=== PATIENT | male | born 1990 | race Caucasian/White ===

== ENCOUNTER 2018-05-21 10:06 | Emergency (ER) | payer MEDICAID, OTHER ==
[~2018-05-21] VITALS: Ht 172.7 cm; Wt 84.5 kg
[~2018-05-21 10:06] MED LIST: CITA-106 PO; DIVA500T35 PO; HALOD100I IM; TRAZ-147 PO
[2018-05-21 10:51] LABS: BASOPHILS % (AUTO) 0.4 % (0.0-2.0); EOSINOPHILS % (AUTO) 0.2 % (1.0-6.0); HEMATOCRIT 42.4 % (41-53); HEMOGLOBIN 14.9 g/dL (13.5-17.5); LYMPHOCYTES # (AUTO) 2.7 K/uL (1.0-4.8); LYMPHOCYTES % (AUTO) 19.6 % (22.0-44.0); MEAN CORPUSCULAR HEMOGLOBIN 30.1 pg (26.0-34.0); MEAN CORPUSCULAR VOLUME 86 fL (80-100); MONOCYTES # (AUTO) 0.8 K/uL (0.1-1.0); MONOCYTES % (AUTO) 5.8 % (2.0-9.0); NEUTROPHILS # (AUTO) 10.3 K/uL (1.8-7.7); PLATELET COUNT (AUTO) 346 K/uL (150-450); RED BLOOD CELL COUNT(AUTO) 4.93 MIL/uL (4.50-5.90); RED CELL DISTRIBUTION WIDTH 12.8 % (11.5-14.5)
[2018-05-21 11:03] LABS: AMPHET/METH SCREEN,URINE NEGATIVE (NEGATIVE); BARBITURATE SCREEN, URINE NEGATIVE (NEGATIVE); BENZODIAZEPINES SCREEN,URINE NEGATIVE (NEGATIVE); CANNABINOID SCREEN,URINE NEGATIVE (NEGATIVE); COCAINE SCREEN,URINE NEGATIVE (NEGATIVE); METHADONE SCREEN, URINE NEGATIVE (NEGATIVE); OPIATE SCREEN,URINE NEGATIVE (NEGATIVE)
[2018-05-21 11:04] LABS: PHENCYCLIDINE SCREEN,URINE NEGATIVE (NEGATIVE)
[2018-05-21 11:05] LABS: ANION GAP 8 mmol/L (8-16); CARBON DIOXIDE 28 mmol/L (22-29); CHLORIDE 101 mmol/L (98-107); CREATININE 1.02 mg/dL (0.60-1.30); GLOMERULAR FILTR. RATE CALC > 60 mL/min (>60); GLUCOSE,RANDOM 83 mg/dL (70-110); POTASSIUM 4.3 mmol/L (3.5-5.1); SODIUM SERUM 137 mmol/L (136-145); UREA NITROGEN, BLOOD 12 mg/dL (7-18)
[2018-05-21 11:09] LABS: ALANINE AMINOTRANSFERASE 27 U/L (12-78); ALBUMIN 4.4 g/dL (3.4-5.0); ALKALINE PHOSPHATASE 77 U/L (46-116); ASPARTATE AMINOTRANSFERASE 19 U/L (15-37); BILIRUBIN,TOTAL 0.7 mg/dL (0.1-1.0); TOTAL PROTEIN, SERUM 7.8 g/dL (6.4-8.2)
[2018-05-21 15:53] VITALS: BP 127/72
== END 2018-05-21 16:32 | disposition home or self-care (01) ==
LOC: EDUNIT# 10:06 → EMS 10:08
DX: F31.9 Bipolar disorder, unspecified (principal); F20.9 Schizophrenia, unspecified; F17.210 Nicotine dependence, cigarettes, uncomplicated; F19.90 Other psychoactive substance use, unspecified, uncomplicated; Z59.0 Homelessness; Z91.010 Allergy to peanuts; Z91.013 Allergy to seafood
CPT/HCPCS: 36415; 80053; 80307; 85025; 93005; 99285; G0480

== ENCOUNTER 2019-03-23 20:21 | Emergency (ER) | payer SELFPAY ==
[~2019-03-23] VITALS: Ht 170.2 cm; Wt 85.5 kg
[2019-03-23] MEDS ORDERED: HALO100V4 IM (20:45)
[2019-03-23] MEDS ORDERED: ACETAMINOPHEN 500 MG TABLET PO ONE (21:45)
[2019-03-23 22:39] VITALS: BP 131/86
== END 2019-03-23 23:44 | disposition home or self-care (01) ==
LOC: EMS 20:23
DX: S00.83XA Contusion of other part of head, initial encounter (principal); F20.9 Schizophrenia, unspecified; F31.9 Bipolar disorder, unspecified; F17.210 Nicotine dependence, cigarettes, uncomplicated; F12.90 Cannabis use, unspecified, uncomplicated; F15.90 Other stimulant use, unspecified, uncomplicated; Z59.0 Homelessness; Z91.010 Allergy to peanuts; Z91.013 Allergy to seafood; Y04.0XXA Assault by unarmed brawl or fight, initial encounter; Y93.89 Activity, other specified; Y92.89 Other specified places as the place of occurrence of the external cause; Y99.8 Other external cause status

== ENCOUNTER 2019-11-04 12:40 | Emergency (ER) | payer OTHER ==
[~2019-11-04] VITALS: Ht 170.2 cm; Wt 85.0 kg
[~2019-11-04 12:40] MED LIST changes: -CITA-106 PO; -DIVA500T35 PO; +HALO100V4 IM; -HALOD100I IM; -TRAZ-147 PO
[2019-11-04 13:15] VITALS: BP 144/88
== END 2019-11-04 13:30 | disposition home or self-care (01) ==
LOC: EMS 12:41
DX: F41.9 Anxiety disorder, unspecified (principal); F31.9 Bipolar disorder, unspecified; F20.9 Schizophrenia, unspecified; F17.210 Nicotine dependence, cigarettes, uncomplicated; F12.90 Cannabis use, unspecified, uncomplicated; F19.90 Other psychoactive substance use, unspecified, uncomplicated; Z59.0 Homelessness
CPT/HCPCS: 99406

== ENCOUNTER 2020-02-27 12:07 | Inpatient (IN) | payer MEDICAID, OTHER ==
[~2020-02-27] VITALS: Ht 170.2 cm; Wt 77.6 kg
[2020-02-27] MEDS ORDERED: TRAZ-252 PO (12:22)
[2020-02-27 12:59] LABS: AMPHET/METH SCREEN,URINE NEGATIVE (NEGATIVE); BARBITURATE SCREEN, URINE NEGATIVE (NEGATIVE); BENZODIAZEPINES SCREEN,URINE NEGATIVE (NEGATIVE); CANNABINOID SCREEN,URINE NEGATIVE (NEGATIVE); COCAINE SCREEN,URINE NEGATIVE (NEGATIVE); METHADONE SCREEN, URINE NEGATIVE (NEGATIVE); OPIATE SCREEN,URINE NEGATIVE (NEGATIVE)
[2020-02-27 13:01] LABS: PHENCYCLIDINE SCREEN,URINE NEGATIVE (NEGATIVE)
[2020-02-27 13:04] LABS: BASOPHILS % (AUTO) 0.5 % (0.0-2.0); EOSINOPHILS % (AUTO) 0.4 % (1.0-6.0); HEMATOCRIT 47.8 % (41-53); HEMOGLOBIN 16.3 g/dL (13.5-17.5); LYMPHOCYTES # (AUTO) 1.6 K/uL (1.0-4.8); LYMPHOCYTES % (AUTO) 14.8 % (22.0-44.0); MEAN CORPUSCULAR VOLUME 88 fL (80-100); MONOCYTES # (AUTO) 0.5 K/uL (0.1-1.0); MONOCYTES % (AUTO) 4.7 % (2.0-9.0); NEUTROPHILS # (AUTO) 8.7 K/uL (1.8-7.7); NEUTROPHILS % (AUTO) 79.6 % (40.0-70.0); PLATELET COUNT (AUTO) 309 K/uL (150-450); RED BLOOD CELL COUNT(AUTO) 5.43 MIL/uL (4.50-5.90); RED CELL DISTRIBUTION WIDTH 12.6 % (11.5-14.5)
[2020-02-27 13:16] LABS: ANION GAP 7 mmol/L (8-16); CALCIUM, TOTAL 9.8 mg/dL (8.8-10.5); CARBON DIOXIDE 31 mmol/L (22-29); CHLORIDE 102 mmol/L (98-107); CREATININE 0.96 mg/dL (0.60-1.30); GLOMERULAR FILTR. RATE CALC > 60 mL/min (>60); GLUCOSE,RANDOM 93 mg/dL (70-110); POTASSIUM 4.8 mmol/L (3.5-5.1); SODIUM SERUM 140 mmol/L (136-145); UREA NITROGEN, BLOOD 7 mg/dL (7-18)
[2020-02-27 13:22] LABS: ALANINE AMINOTRANSFERASE 33 U/L (12-78); ALBUMIN 4.3 g/dL (3.4-5.0); ALKALINE PHOSPHATASE 97 U/L (46-116); ASPARTATE AMINOTRANSFERASE 20 U/L (15-37); BILIRUBIN,TOTAL 0.2 mg/dL (0.1-1.0); TOTAL PROTEIN, SERUM 7.5 g/dL (6.4-8.2)
[2020-02-27] MEDS: HALOPERIDOL 5 MG TABLET PO SCH (17:14)
[2020-02-27] MEDS ORDERED: PNEUMOCOCCAL VACCINE POLYVALENT 0.5 ML VIAL [PPSV23] IM ONE (20:15)
[2020-02-28 05:00] VITALS: BP 106/62
[2020-02-28 08:10] VITALS: BP 104/64
[2020-02-28] MEDS: HALOPERIDOL 5 MG TABLET PO SCH ×2 (08:48→16:41)
[2020-02-28] MEDS: NICOTINE 14 MG/24 HOUR PATCH TD SCH (08:49)
[2020-02-28] MEDS ORDERED: ACETAMINOPHEN 325 MG TABLET PO PRN (14:30)
[2020-02-28] MEDS ORDERED: ALBUTEROL SULFATE HFA 90 MCG/PUFF 8 GM INHALER IH PRN (14:30)
[2020-02-28] MEDS ORDERED: DOCUSATE SODIUM 100 MG CAPSULE PO PRN (14:30)
[2020-02-28] MEDS ORDERED: MAG HYDROX/AL HYDROX/SIMETH ES 30 ML SUSPENSION UDCUP PO PRN (14:30)
[2020-02-28] MEDS ORDERED: NICOTINE 14 MG/24 HOUR PATCH TD PRN (14:30)
[2020-02-28] MEDS ORDERED: PETROLATUM,WHITE 28 GM JELLY TP PRN (14:30)
[2020-02-28] MEDS ORDERED: LOPERAMIDE HCL 2 MG CAPSULE PO PRN (14:30)
[2020-02-28] MEDS ORDERED: GuaiFENesin/D-METHORPHAN [SUGAR-FREE] 200-20MG/10 ML SYRUP UDCUP PO PRN (14:30)
[2020-02-28] MEDS ORDERED: IBUPROFEN 400 MG TABLET PO PRN (14:30)
[2020-02-28] MEDS ORDERED: CloNIDine HCL 0.1 MG TABLET PO PRN (14:30)
[2020-02-28] MEDS ORDERED: MAGNESIUM HYDROXIDE SUSPENSION 30 ML UDCUP PO PRN (14:30)
[2020-02-28] MEDS ORDERED: ONDANSETRON HCL 4 MG TABLET PO PRN (14:30)
[2020-02-28 16:17] VITALS: BP 111/70
[2020-02-28] MEDS: RisperiDONE 2 MG TABLET PO SCH (20:21)
[2020-02-29 05:37] VITALS: BP 117/75
[2020-02-29 08:07] LABS: CHOL/HDL RATIO 5.2 (4.2-7.3); FREE T4 (FREE THYROXINE) 1.27 ng/dL (0.76-1.46); THYROID STIMULATING HORMONE 1.86 uIU/mL (0.36-3.74)
[2020-02-29] MEDS: NICOTINE 14 MG/24 HOUR PATCH TD SCH (08:59)
[2020-02-29] MEDS: HALOPERIDOL 5 MG TABLET PO SCH ×2 (08:59→17:03)
[2020-02-29 09:04] VITALS: BP 115/70
[2020-02-29] MEDS: HALOPERIDOL 5 MG TABLET PO PRN (12:18)
[2020-02-29 16:41] VITALS: BP 102/60
[2020-02-29] MEDS: RisperiDONE 2 MG TABLET PO SCH (20:52)
[2020-02-29] MEDS: ZOLPIDEM TARTRATE 10 MG TABLET PO PRN (20:52)
[2020-03-01 05:39] VITALS: BP 128/86
[2020-03-01] MEDS: HALOPERIDOL 5 MG TABLET PO SCH ×2 (08:51→16:35)
[2020-03-01] MEDS: NICOTINE 14 MG/24 HOUR PATCH TD SCH (08:52)
[2020-03-01] MEDS: LORazepam 2 MG TABLET PO PRN ×2 (09:56→15:45)
[2020-03-01 10:12] VITALS: BP 129/65
[2020-03-01 16:38] VITALS: BP 115/84
[2020-03-01] MEDS: RisperiDONE 2 MG TABLET PO SCH (20:29)
[2020-03-02 02:26] VITALS: BP 118/83
[2020-03-02] MEDS: HALOPERIDOL 5 MG TABLET PO SCH ×2 (08:49→16:27)
[2020-03-02] MEDS: NICOTINE 14 MG/24 HOUR PATCH TD SCH (08:56)
[2020-03-02 09:48] VITALS: BP 122/78
[2020-03-02] MEDS: LORazepam 2 MG TABLET PO PRN ×2 (12:34→17:03)
[2020-03-02 16:32] VITALS: BP 126/71
[2020-03-02] MEDS: HALOPERIDOL 5 MG TABLET PO PRN (18:29)
[2020-03-02] MEDS: RisperiDONE 2 MG TABLET PO SCH (20:26)
[2020-03-03 01:31] VITALS: BP 131/75
[2020-03-03 08:06] VITALS: BP 112/76
[2020-03-03] MEDS: OMEGA-3/DHA/EPA/FISH OIL 1,000 MG CAPSULE PO SCH (08:36)
[2020-03-03] MEDS: HALOPERIDOL 5 MG TABLET PO SCH ×2 (08:36→15:51)
[2020-03-03] MEDS: NICOTINE 14 MG/24 HOUR PATCH TD SCH (08:43)
[2020-03-03] MEDS: LORazepam 2 MG TABLET PO PRN (15:51)
[2020-03-03 16:21] VITALS: BP 132/82
[2020-03-03] MEDS: RisperiDONE 2 MG TABLET PO SCH (20:23)
[2020-03-04 01:02] VITALS: BP 125/79
[2020-03-04] MEDS: HALOPERIDOL 5 MG TABLET PO SCH ×2 (08:07→16:05)
[2020-03-04] MEDS: OMEGA-3/DHA/EPA/FISH OIL 1,000 MG CAPSULE PO SCH (08:07)
[2020-03-04] MEDS: NICOTINE 14 MG/24 HOUR PATCH TD SCH (08:09)
[2020-03-04 08:59] VITALS: BP 126/75
[2020-03-04] MEDS: LORazepam 2 MG TABLET PO PRN ×2 (09:01→14:00)
[2020-03-04 16:39] VITALS: BP 139/66
[2020-03-04] MEDS: RisperiDONE 2 MG TABLET PO SCH (20:13)
[2020-03-04] MEDS: ZOLPIDEM TARTRATE 10 MG TABLET PO PRN (21:11)
[2020-03-05 05:18] VITALS: BP 123/78
[2020-03-05] MEDS: LORazepam 2 MG TABLET PO PRN ×2 (06:45→16:03)
[2020-03-05 07:40] VITALS: BP 109/55
[2020-03-05 08:01] VITALS: BP 109/55
[2020-03-05] MEDS: NICOTINE 14 MG/24 HOUR PATCH TD SCH (08:56)
[2020-03-05] MEDS: HALOPERIDOL 5 MG TABLET PO SCH ×2 (08:56→16:03)
[2020-03-05] MEDS: OMEGA-3/DHA/EPA/FISH OIL 1,000 MG CAPSULE PO SCH (08:56)
[2020-03-05 16:12] VITALS: BP 122/78
[2020-03-05] MEDS: RisperiDONE 2 MG TABLET PO SCH (20:10)
[2020-03-06 06:30] VITALS: BP 131/88
[2020-03-06] MEDS: LORazepam 2 MG TABLET PO PRN ×2 (06:48→11:42)
[2020-03-06 08:00] VITALS: BP 131/75
[2020-03-06] MEDS: NICOTINE 14 MG/24 HOUR PATCH TD SCH (09:00)
[2020-03-06] MEDS: HALOPERIDOL 5 MG TABLET PO SCH ×2 (09:59→16:01)
[2020-03-06] MEDS: OMEGA-3/DHA/EPA/FISH OIL 1,000 MG CAPSULE PO SCH (09:59)
[2020-03-06 16:12] VITALS: BP 134/75
[2020-03-06] MEDS: RisperiDONE 2 MG TABLET PO SCH (20:16)
[2020-03-06] MEDS: MIRTAZAPINE 15 MG TABLET PO SCH (20:16)
[2020-03-07 02:05] VITALS: BP 123/65
[2020-03-07] MEDS: OMEGA-3/DHA/EPA/FISH OIL 1,000 MG CAPSULE PO SCH (08:31)
[2020-03-07] MEDS: HALOPERIDOL 5 MG TABLET PO SCH ×2 (08:31→16:31)
[2020-03-07] MEDS: NICOTINE 14 MG/24 HOUR PATCH TD SCH (08:32)
[2020-03-07 09:55] VITALS: BP 140/80
[2020-03-07] MEDS: LORazepam 2 MG TABLET PO PRN (12:29)
[2020-03-07 16:24] VITALS: BP 129/83
[2020-03-07] MEDS: MIRTAZAPINE 15 MG TABLET PO SCH (21:06)
[2020-03-07] MEDS: RisperiDONE 2 MG TABLET PO SCH (21:07)
[2020-03-08 05:37] VITALS: BP 122/78
[2020-03-08 08:15] VITALS: BP 125/73
[2020-03-08] MEDS: NICOTINE 14 MG/24 HOUR PATCH TD SCH (08:19)
[2020-03-08] MEDS: OMEGA-3/DHA/EPA/FISH OIL 1,000 MG CAPSULE PO SCH (08:19)
[2020-03-08] MEDS: HALOPERIDOL 5 MG TABLET PO SCH ×2 (08:19→16:04)
[2020-03-08] MEDS: LORazepam 2 MG TABLET PO PRN ×2 (09:25→16:05)
[2020-03-08 16:41] VITALS: BP 126/88
[2020-03-08] MEDS: RisperiDONE 2 MG TABLET PO SCH (20:43)
[2020-03-08] MEDS: MIRTAZAPINE 15 MG TABLET PO SCH (20:43)
[2020-03-09 05:30] VITALS: BP 118/70
[2020-03-09] MEDS: HALOPERIDOL 5 MG TABLET PO SCH ×2 (08:13→16:16)
[2020-03-09] MEDS: OMEGA-3/DHA/EPA/FISH OIL 1,000 MG CAPSULE PO SCH (08:13)
[2020-03-09] MEDS: NICOTINE 14 MG/24 HOUR PATCH TD SCH (08:17)
[2020-03-09 08:20] VITALS: BP 140/76
[2020-03-09] MEDS: LORazepam 2 MG TABLET PO PRN ×2 (09:14→15:23)
[2020-03-09 16:20] VITALS: BP 131/93
[2020-03-09] MEDS: MIRTAZAPINE 15 MG TABLET PO SCH (20:21)
[2020-03-09] MEDS: RisperiDONE 2 MG TABLET PO SCH (20:21)
[2020-03-10 00:01] VITALS: BP 125/71
[2020-03-10 08:25] VITALS: BP 141/80
[2020-03-10] MEDS: HALOPERIDOL 5 MG TABLET PO SCH ×2 (08:39→16:02)
[2020-03-10] MEDS: OMEGA-3/DHA/EPA/FISH OIL 1,000 MG CAPSULE PO SCH (08:39)
[2020-03-10] MEDS: NICOTINE 14 MG/24 HOUR PATCH TD SCH (08:44)
[2020-03-10] MEDS: LORazepam 2 MG TABLET PO PRN ×2 (10:12→15:33)
[2020-03-10 16:10] VITALS: BP 122/84
[2020-03-10] MEDS: MIRTAZAPINE 15 MG TABLET PO SCH (20:26)
[2020-03-10] MEDS: RisperiDONE 2 MG TABLET PO SCH (20:26)
[2020-03-11 01:51] VITALS: BP 126/82
[2020-03-11] MEDS ORDERED: HALO10 PO ×2 (04:02→04:23)
[2020-03-11] MEDS ORDERED: MIRT-89 PO ×2 (04:02→04:23)
[2020-03-11] MEDS ORDERED: RISP2 PO ×2 (04:02→04:23)
[2020-03-11] MEDS ORDERED: HALOPERIDOL 5 MG TABLET PO SCH (09:00)
[2020-03-11] MEDS ORDERED: MIRTAZAPINE 15 MG TABLET PO SCH (21:00)
[2020-03-11] MEDS ORDERED: RisperiDONE 2 MG TABLET PO SCH (21:00)
== END 2020-03-11 07:53 | disposition home or self-care (01) | DRG 750 ==
LOC: EMS 12:19 → B2S 16:43 → UNDOADMIN 16:50 → B2S 16:50
PROVIDERS: ADMIT Psychiatry & Neurology Child & Adolescent Psychiatry; ATTEND Psychiatry & Neurology Child & Adolescent Psychiatry
DX: F25.1 Schizoaffective disorder, depressive type (principal); R45.851 Suicidal ideations; Z59.0 Homelessness; F10.10 Alcohol abuse, uncomplicated; F12.90 Cannabis use, unspecified, uncomplicated; F15.90 Other stimulant use, unspecified, uncomplicated; K21.9 Gastro-esophageal reflux disease without esophagitis; Z79.899 Other long term (current) drug therapy; Z87.891 Personal history of nicotine dependence; Z28.21 Immunization not carried out because of patient refusal
CPT/HCPCS: 84439; 84443; 86361; G0480

== ENCOUNTER 2020-03-28 17:13 | Emergency (ER) | payer MEDICAID, OTHER ==
[~2020-03-28] VITALS: Ht 170.2 cm; Wt 84.1 kg
[~2020-03-28 17:13] MED LIST changes: +HALO10 PO; -HALO100V4 IM; +MIRT-89 PO; +RISP2 PO
[2020-03-28 20:30] VITALS: BP 124/77
== END 2020-03-28 20:59 | disposition home or self-care (01) ==
LOC: EMS 17:22
DX: R05 Cough (principal); F32.9 Major depressive disorder, single episode, unspecified; E11.9 Type 2 diabetes mellitus without complications; F20.9 Schizophrenia, unspecified; F17.210 Nicotine dependence, cigarettes, uncomplicated; Z03.818 Encounter for observation for suspected exposure to other biological agents ruled out; Z91.010 Allergy to peanuts; Z91.013 Allergy to seafood; Z79.899 Other long term (current) drug therapy
CPT/HCPCS: 87635

== ENCOUNTER 2020-03-31 20:00 | Inpatient (IN) | payer MEDICAID ==
[~2020-03-31] VITALS: Ht 172.7 cm; Wt 80.7 kg
[2020-04-01 00:19] VITALS: BP 145/87
[2020-04-01 03:51] VITALS: BP 132/81
[2020-04-01] MEDS ORDERED: ONDANSETRON HCL 4 MG TABLET PO PRN (08:15)
[2020-04-01] MEDS ORDERED: NICOTINE 14 MG/24 HOUR PATCH TD PRN (08:15)
[2020-04-01] MEDS ORDERED: GuaiFENesin/D-METHORPHAN [SUGAR-FREE] 200-20MG/10 ML SYRUP UDCUP PO PRN (08:15)
[2020-04-01] MEDS ORDERED: DOCUSATE SODIUM 100 MG CAPSULE PO PRN (08:15)
[2020-04-01] MEDS ORDERED: LOPERAMIDE HCL 2 MG CAPSULE PO PRN (08:15)
[2020-04-01] MEDS ORDERED: PETROLATUM,WHITE 28 GM JELLY TP PRN (08:15)
[2020-04-01] MEDS ORDERED: MAG HYDROX/AL HYDROX/SIMETH ES 30 ML SUSPENSION UDCUP PO PRN (08:15)
[2020-04-01] MEDS ORDERED: CloNIDine HCL 0.1 MG TABLET PO PRN (08:15)
[2020-04-01] MEDS ORDERED: ALBUTEROL SULFATE HFA 90 MCG/PUFF 8 GM INHALER IH PRN (08:15)
[2020-04-01] MEDS ORDERED: MAGNESIUM HYDROXIDE SUSPENSION 30 ML UDCUP PO PRN (08:15)
[2020-04-01] MEDS ORDERED: ACETAMINOPHEN 325 MG TABLET PO PRN (08:15)
[2020-04-01] MEDS: LORazepam 2 MG TABLET PO PRN ×2 (10:39→15:46)
[2020-04-01] MEDS: HALOPERIDOL 5 MG TABLET PO SCH ×2 (10:39→21:09)
[2020-04-01 16:07] VITALS: BP 120/77
[2020-04-01] MEDS: MIRTAZAPINE 15 MG TABLET PO SCH (21:09)
[2020-04-02 06:22] VITALS: BP 128/78
[2020-04-02 08:16] LABS: BASOPHILS % (AUTO) 0.6 % (0.0-2.0); EOSINOPHILS % (AUTO) 1.6 % (1.0-6.0); HEMATOCRIT 46.4 % (41-53); HEMOGLOBIN 15.5 g/dL (13.5-17.5); LYMPHOCYTES # (AUTO) 2.4 K/uL (1.0-4.8); LYMPHOCYTES % (AUTO) 30.1 % (22.0-44.0); MEAN CORPUSCULAR HEMOGLOBIN 29.6 pg (26.0-34.0); MEAN CORPUSCULAR HGB CONC 33.4 G/dL (31.0-37.0); MEAN CORPUSCULAR VOLUME 89 fL (80-100); MONOCYTES # (AUTO) 0.5 K/uL (0.1-1.0); MONOCYTES % (AUTO) 6.7 % (2.0-9.0); NEUTROPHILS # (AUTO) 4.8 K/uL (1.8-7.7); PLATELET COUNT (AUTO) 331 K/uL (150-450); RED BLOOD CELL COUNT(AUTO) 5.24 MIL/uL (4.50-5.90); RED CELL DISTRIBUTION WIDTH 12.6 % (11.5-14.5)
[2020-04-02 08:39] VITALS: BP 116/77
[2020-04-02 08:46] LABS: ALANINE AMINOTRANSFERASE 51 U/L (12-78); ALBUMIN 3.8 g/dL (3.4-5.0); ALKALINE PHOSPHATASE 91 U/L (46-116); ANION GAP 7 mmol/L (8-16); ASPARTATE AMINOTRANSFERASE 33 U/L (15-37); BILIRUBIN,TOTAL 0.6 mg/dL (0.1-1.0); CALCIUM, TOTAL 8.9 mg/dL (8.8-10.5); CARBON DIOXIDE 29 mmol/L (22-29); CHLORIDE 104 mmol/L (98-107); CHOL/HDL RATIO 4.8 (4.2-7.3); CHOLESTEROL 159 mg/dL (131-200); CREATININE 0.86 mg/dL (0.60-1.30); FREE T4 (FREE THYROXINE) 1.27 ng/dL (0.76-1.46); GLOMERULAR FILTR. RATE CALC > 60 mL/min (>60); GLUCOSE,RANDOM 86 mg/dL (70-110); HDL CHOLESTEROL 33 mg/dL (40-60); LDL CHOL (CALC.) 100 mg/dL (0-130); POTASSIUM 4.1 mmol/L (3.5-5.1); SODIUM SERUM 140 mmol/L (136-145); THYROID STIMULATING HORMONE 0.92 uIU/mL (0.36-3.74); TOTAL PROTEIN, SERUM 7.3 g/dL (6.4-8.2); TRIGLYCERIDES 132 mg/dL (15-150); UREA NITROGEN, BLOOD 12 mg/dL (7-18)
[2020-04-02] MEDS: HALOPERIDOL 5 MG TABLET PO SCH ×2 (09:40→20:35)
[2020-04-02] MEDS: LORazepam 2 MG TABLET PO PRN ×3 (10:00→20:35)
[2020-04-02 16:22] VITALS: BP 138/74
[2020-04-02] MEDS: HALOPERIDOL 5 MG TABLET PO PRN (16:44)
[2020-04-02] MEDS: MIRTAZAPINE 15 MG TABLET PO SCH (20:35)
[2020-04-03 07:00] VITALS: BP 117/72
[2020-04-03 09:22] VITALS: BP 122/82
[2020-04-03] MEDS: HALOPERIDOL 5 MG TABLET PO SCH ×2 (09:25→20:27)
[2020-04-03] MEDS: LORazepam 2 MG TABLET PO PRN ×3 (09:49→18:54)
[2020-04-03 16:12] VITALS: BP 136/85
[2020-04-03] MEDS: IBUPROFEN 400 MG TABLET PO PRN (16:27)
[2020-04-03] MEDS: MIRTAZAPINE 15 MG TABLET PO SCH (20:27)
[2020-04-03] MEDS: ZOLPIDEM TARTRATE 10 MG TABLET PO PRN (20:27)
[2020-04-04 05:12] VITALS: BP 124/61
[2020-04-04] MEDS: LORazepam 2 MG TABLET PO PRN ×3 (06:23→15:56)
[2020-04-04 08:32] VITALS: BP 129/88
[2020-04-04] MEDS: HALOPERIDOL 5 MG TABLET PO SCH ×2 (08:39→20:25)
[2020-04-04] MEDS: HALOPERIDOL 5 MG TABLET PO PRN (15:56)
[2020-04-04 16:09] VITALS: BP 140/70
[2020-04-04] MEDS: MIRTAZAPINE 15 MG TABLET PO SCH (20:25)
[2020-04-04] MEDS: ZOLPIDEM TARTRATE 10 MG TABLET PO PRN (20:25)
[2020-04-05 06:51] VITALS: BP 135/74
[2020-04-05] MEDS: HALOPERIDOL 5 MG TABLET PO SCH ×2 (08:34→20:39)
[2020-04-05 08:42] VITALS: BP 123/72
[2020-04-05] MEDS: LORazepam 2 MG TABLET PO PRN (14:39)
[2020-04-05 16:18] VITALS: BP 117/77
[2020-04-05] MEDS: MIRTAZAPINE 15 MG TABLET PO SCH (20:39)
[2020-04-06 06:29] VITALS: BP 115/67
[2020-04-06 08:42] VITALS: BP 119/64
[2020-04-06] MEDS: HALOPERIDOL 5 MG TABLET PO SCH ×2 (08:47→20:21)
[2020-04-06] MEDS: LORazepam 2 MG TABLET PO PRN ×2 (08:47→15:01)
[2020-04-06] MEDS: HALOPERIDOL 5 MG TABLET PO PRN (16:03)
[2020-04-06 16:13] VITALS: BP 123/89
[2020-04-06] MEDS ORDERED: LORazepam 1 MG TABLET PO PRN (16:15)
[2020-04-06] MEDS: ZOLPIDEM TARTRATE 10 MG TABLET PO PRN (20:21)
[2020-04-06] MEDS: MIRTAZAPINE 15 MG TABLET PO SCH (20:21)
[2020-04-07 06:43] VITALS: BP 118/79
[2020-04-07 08:28] VITALS: BP 121/73
[2020-04-07] MEDS: HALOPERIDOL 5 MG TABLET PO SCH (09:02)
[2020-04-07] MEDS ORDERED: HALO2 PO (10:27)
[2020-04-07] MEDS ORDERED: MIRT-89 PO (10:27)
[2020-04-07] MEDS: IBUPROFEN 400 MG TABLET PO PRN (13:57)
[2020-04-07 16:13] VITALS: BP 115/65
== END 2020-04-07 17:30 | disposition home or self-care (01) | DRG 750 ==
LOC: B3A 23:45
PROVIDERS: ADMIT Psychiatry & Neurology Child & Adolescent Psychiatry; ATTEND Psychiatry & Neurology Child & Adolescent Psychiatry
DX: F25.9 Schizoaffective disorder, unspecified (principal); R45.851 Suicidal ideations; F10.10 Alcohol abuse, uncomplicated; F12.90 Cannabis use, unspecified, uncomplicated; K21.9 Gastro-esophageal reflux disease without esophagitis; Z91.410 Personal history of adult physical and sexual abuse; Z91.5 Personal history of self-harm
CPT/HCPCS: 83036; 84439; 84443

== ENCOUNTER 2020-06-29 17:33 | Emergency (ER) | payer OTHER ==
[~2020-06-29] VITALS: Ht 172.7 cm; Wt 82.7 kg
[~2020-06-29 17:33] MED LIST changes: -HALO10 PO; +HALO2 PO; -RISP2 PO
[2020-06-29 17:51] VITALS: BP 163/134
[2020-06-29] MEDS ORDERED: LORazepam 2 MG/ML VIAL IM ONE (18:00)
[2020-06-29 18:18] LABS: BASOPHILS % (AUTO) 0.7 % (0.0-2.0); EOSINOPHILS % (AUTO) 0 % (1.0-6.0); HEMATOCRIT 52.1 % (41-53); HEMOGLOBIN 17.3 g/dL (13.5-17.5); LYMPHOCYTES # (AUTO) 3.8 K/uL (1.0-4.8); LYMPHOCYTES % (AUTO) 18.5 % (22.0-44.0); MEAN CORPUSCULAR HEMOGLOBIN 28.8 pg (26.0-34.0); MEAN CORPUSCULAR HGB CONC 33.2 G/dL (31.0-37.0); MEAN CORPUSCULAR VOLUME 87 fL (80-100); MONOCYTES # (AUTO) 1.7 K/uL (0.1-1.0); MONOCYTES % (AUTO) 8.2 % (2.0-9.0); NEUTROPHILS # (AUTO) 14.8 K/uL (1.8-7.7); NEUTROPHILS % (AUTO) 72.6 % (40.0-70.0); PLATELET COUNT (AUTO) 439 K/uL (150-450); RED CELL DISTRIBUTION WIDTH 12.8 % (11.5-14.5)
[2020-06-29 18:25] LABS: ANION GAP 10 mmol/L (8-16); CALCIUM, TOTAL 10.4 mg/dL (8.8-10.5); CARBON DIOXIDE 27 mmol/L (22-29); CHLORIDE 103 mmol/L (98-107); CREATININE 1.28 mg/dL (0.60-1.30); GLOMERULAR FILTR. RATE CALC > 60 mL/min (>60); GLUCOSE,RANDOM 120 mg/dL (70-110); POTASSIUM 3.9 mmol/L (3.5-5.1); SODIUM SERUM 140 mmol/L (136-145); UREA NITROGEN, BLOOD 12 mg/dL (7-18)
[2020-06-29 18:25] LABS: AMPHET/METH SCREEN,URINE POSITIVE (NEGATIVE); BARBITURATE SCREEN, URINE NEGATIVE (NEGATIVE); BENZODIAZEPINES SCREEN,URINE NEGATIVE (NEGATIVE); CANNABINOID SCREEN,URINE NEGATIVE (NEGATIVE); COCAINE SCREEN,URINE NEGATIVE (NEGATIVE); METHADONE SCREEN, URINE NEGATIVE (NEGATIVE); OPIATE SCREEN,URINE NEGATIVE (NEGATIVE)
[2020-06-29 18:29] LABS: PHENCYCLIDINE SCREEN,URINE NEGATIVE (NEGATIVE)
[2020-06-29 18:31] LABS: ALANINE AMINOTRANSFERASE 115 U/L (12-78); ALKALINE PHOSPHATASE 99 U/L (46-116); ASPARTATE AMINOTRANSFERASE 51 U/L (15-37); BILIRUBIN,TOTAL 0.5 mg/dL (0.1-1.0); TOTAL PROTEIN, SERUM 9.2 g/dL (6.4-8.2)
== END 2020-06-29 18:27 | disposition left against medical advice (07) ==
LOC: EMS 17:33
DX: F25.9 Schizoaffective disorder, unspecified (principal); F15.10 Other stimulant abuse, uncomplicated; F10.129 Alcohol abuse with intoxication, unspecified; F41.9 Anxiety disorder, unspecified; F17.210 Nicotine dependence, cigarettes, uncomplicated; E11.9 Type 2 diabetes mellitus without complications
CPT/HCPCS: 36415; 80053; 80307; 85025; 99284; G0480

== ENCOUNTER 2020-07-12 15:39 | Emergency (ER) | payer OTHER ==
[~2020-07-12] VITALS: Ht 167.6 cm; Wt 72.7 kg
[2020-07-12 16:53] LABS: GLUCOSE,POINT OF CARE 102 MG/DL (70-110)
[2020-07-12] MEDS ORDERED: HALOPERIDOL 5 MG TABLET PO ONE (17:30)
[2020-07-12] MEDS ORDERED: LORazepam 2 MG TABLET PO ONE (17:30)
[2020-07-12 17:48] LABS: AMPHET/METH SCREEN,URINE POSITIVE (NEGATIVE); BARBITURATE SCREEN, URINE NEGATIVE (NEGATIVE); BENZODIAZEPINES SCREEN,URINE NEGATIVE (NEGATIVE); CANNABINOID SCREEN,URINE NEGATIVE (NEGATIVE); COCAINE SCREEN,URINE NEGATIVE (NEGATIVE); METHADONE SCREEN, URINE NEGATIVE (NEGATIVE); OPIATE SCREEN,URINE NEGATIVE (NEGATIVE); PHENCYCLIDINE SCREEN,URINE NEGATIVE (NEGATIVE)
[2020-07-12 18:11] VITALS: BP 125/73
== END 2020-07-12 18:14 | disposition home or self-care (01) ==
LOC: EMS 15:39
DX: F20.0 Paranoid schizophrenia (principal); F15.10 Other stimulant abuse, uncomplicated; F32.9 Major depressive disorder, single episode, unspecified; E11.9 Type 2 diabetes mellitus without complications; F17.210 Nicotine dependence, cigarettes, uncomplicated; Z59.0 Homelessness; Z91.010 Allergy to peanuts; Z91.013 Allergy to seafood
CPT/HCPCS: 99406

== ENCOUNTER 2024-09-10 09:25 | Inpatient (IN) | payer MEDICAID, OTHER ==
[~2024-09-10] VITALS: Ht 170.2 cm; Wt 84.8 kg
[2024-09-10] MEDS ORDERED: TRAZ-252 PO (09:37)
[2024-09-10] MEDS ORDERED: OLAN10TA74 PO (09:37)
[2024-09-10] MEDS ORDERED: PALI234D IM (09:37)
[2024-09-10 10:10] LABS: BASOPHILS % (AUTO) 0.8 % (0.0-2.0); EOSINOPHILS % (AUTO) 1.3 % (1.0-6.0); HEMATOCRIT 45.7 % (41-53); HEMOGLOBIN 15.5 g/dL (13.5-17.5); LYMPHOCYTES # (AUTO) 2.1 K/uL (1.0-4.8); LYMPHOCYTES % (AUTO) 25.1 % (22.0-44.0); MEAN CORPUSCULAR HEMOGLOBIN 29.8 pg (26.0-34.0); MEAN CORPUSCULAR VOLUME 88 fL (80-100); MONOCYTES # (AUTO) 0.5 K/uL (0.1-1.0); MONOCYTES % (AUTO) 6.3 % (2.0-9.0); NEUTROPHILS # (AUTO) 5.4 K/uL (1.8-7.7); NEUTROPHILS % (AUTO) 66.5 % (40.0-70.0); PLATELET COUNT (AUTO) 329 K/uL (150-450); RED BLOOD CELL COUNT(AUTO) 5.21 MIL/uL (4.50-5.90); RED CELL DISTRIBUTION WIDTH 13.3 % (11.5-14.5); WHITE BLOOD COUNT (AUTO) 8.2 K/uL (4.5-11.0)
[2024-09-10 10:12] LABS: ANION GAP 6 mmol/L (8-16); CALCIUM, TOTAL 9.1 mg/dL (8.8-10.5); CARBON DIOXIDE 30 mmol/L (22-29); CHLORIDE 102 mmol/L (98-107); CREATININE 0.91 mg/dL (0.60-1.30); GLOMERULAR FILTR. RATE CALC > 60 mL/min (>60); GLUCOSE,RANDOM 95 mg/dL (70-110); POTASSIUM 4.6 mmol/L (3.5-5.1); SODIUM SERUM 138 mmol/L (136-145); UREA NITROGEN, BLOOD 7 mg/dL (7-18)
[2024-09-10 10:13] LABS: COVID AG,FIA SOURCE NASAL SWAB
[2024-09-10 10:35] LABS: SARS-COV2 (COVID) ANTIGEN,FIA Negative (Negative)
[2024-09-10 10:42] LABS: ALCOHOL, BLOOD (SERUM) < 3 mg/dL (0-10)
[2024-09-10] MEDS ORDERED: MAGNESIUM HYDROXIDE SUSPENSION 30 ML UDCUP PO PRN ×2 (11:45→19:15)
[2024-09-10] MEDS ORDERED: MAG HYDROX/ALUMINUM HYD/SIMETH ES 30 ML SUSPENSION UDCUP PO PRN ×2 (11:45→19:15)
[2024-09-10] MEDS ORDERED: ACETAMINOPHEN 325 MG TABLET PO PRN ×2 (11:45→19:15)
[2024-09-10] MEDS ORDERED: LOPERAMIDE HCL 2 MG CAPSULE PO PRN ×2 (11:45→19:15)
[2024-09-10 14:30] VITALS: BP 128/79; PULSE 91; RESP 18; TEMP 97.8; O2SAT 97
[2024-09-10] MEDS ORDERED: IBUPROFEN 400 MG TABLET PO PRN (19:15)
[2024-09-10] MEDS ORDERED: GuaiFENesin/D-METHORPHAN [SUGAR-FREE] 200-20MG/10 ML SYRUP UDCUP PO PRN (19:15)
[2024-09-10] MEDS ORDERED: PETROLATUM,WHITE 28 GM JELLY TP PRN (19:15)
[2024-09-10] MEDS ORDERED: ALBUTEROL SULFATE HFA 90 MCG/PUFF 8 GM INHALER IH PRN (19:15)
[2024-09-10] MEDS ORDERED: ONDANSETRON 4 MG TABLET PO PRN (19:15)
[2024-09-10] MEDS ORDERED: CloNIDine HCL 0.1 MG TABLET PO PRN (19:15)
[2024-09-10] MEDS ORDERED: NICOTINE 14 MG/24 HOUR PATCH TD PRN (19:15)
[2024-09-10 20:39] VITALS: BP 126/84; PULSE 90; RESP 18; TEMP 98.2; O2SAT 99
[2024-09-11 09:15] LABS: BASOPHILS % (AUTO) 0.6 % (0.0-2.0); EOSINOPHILS % (AUTO) 1.8 % (1.0-6.0); HEMATOCRIT 46.4 % (41-53); HEMOGLOBIN 15.8 g/dL (13.5-17.5); LYMPHOCYTES # (AUTO) 2.4 K/uL (1.0-4.8); LYMPHOCYTES % (AUTO) 29.1 % (22.0-44.0); MEAN CORPUSCULAR HEMOGLOBIN 29.9 pg (26.0-34.0); MEAN CORPUSCULAR VOLUME 88 fL (80-100); MONOCYTES # (AUTO) 0.6 K/uL (0.1-1.0); MONOCYTES % (AUTO) 7.1 % (2.0-9.0); NEUTROPHILS # (AUTO) 5.1 K/uL (1.8-7.7); NEUTROPHILS % (AUTO) 61.4 % (40.0-70.0); PLATELET COUNT (AUTO) 315 K/uL (150-450); RED BLOOD CELL COUNT(AUTO) 5.27 MIL/uL (4.50-5.90); RED CELL DISTRIBUTION WIDTH 13.2 % (11.5-14.5); WHITE BLOOD COUNT (AUTO) 8.3 K/uL (4.5-11.0)
[2024-09-11 09:18] LABS: HEMOGLOBIN A1C 5.1 % (3.8-5.6)
[2024-09-11 09:31] LABS: ALANINE AMINOTRANSFERASE 49 U/L (12-78); ALBUMIN 3.2 g/dL (3.4-5.0); ALKALINE PHOSPHATASE 99 U/L (46-116); ANION GAP 9 mmol/L (8-16); ASPARTATE AMINOTRANSFERASE 27 U/L (15-37); BILIRUBIN,TOTAL 0.4 mg/dL (0.1-1.0); CARBON DIOXIDE 26 mmol/L (22-29); CHLORIDE 102 mmol/L (98-107); CHOL/HDL RATIO 3.5 (4.2-7.3); CHOLESTEROL 149 mg/dL (131-200); GLOMERULAR FILTR. RATE CALC > 60 mL/min (>60); GLUCOSE,RANDOM 91 mg/dL (70-110); HDL CHOLESTEROL 42 mg/dL (40-60); LDL CHOL (CALC.) 78 mg/dL (0-130); POTASSIUM 3.9 mmol/L (3.5-5.1); SODIUM SERUM 137 mmol/L (136-145); THYROID STIMULATING HORMONE 0.66 uIU/mL (0.36-3.74); TOTAL PROTEIN, SERUM 6.9 g/dL (6.4-8.2); TRIGLYCERIDES 143 mg/dL (15-150); UREA NITROGEN, BLOOD 12 mg/dL (7-18)
[2024-09-11 09:50] VITALS: BP 131/75; PULSE 85; RESP 18; TEMP 97.5; O2SAT 98
[2024-09-11] MEDS: PALIPERIDONE PALMITATE 234 MG/1.5 ML SYRINGE IM SCH (14:47)
[2024-09-11 20:27] VITALS: BP 117/74; PULSE 76; RESP 18; TEMP 97.4; O2SAT 97
[2024-09-11] MEDS: OLANZapine 10 MG TABLET PO SCH (20:42)
[2024-09-11] MEDS: TraZODone HCL 50 MG TABLET PO SCH (20:42)
[2024-09-12 09:56] VITALS: BP 124/69; PULSE 88; RESP 18; TEMP 97.7; O2SAT 98
[2024-09-12 20:15] VITALS: BP 136/69; PULSE 76; RESP 17; TEMP 98; O2SAT 98
[2024-09-13 08:31] VITALS: BP 123/66; PULSE 70; RESP 17; TEMP 98.6; O2SAT 95
[2024-09-13 22:16] VITALS: BP 123/80; PULSE 70; RESP 19; TEMP 97.9; O2SAT 99
[2024-09-14 10:44] VITALS: BP 115/85; PULSE 92; RESP 18; TEMP 97; O2SAT 96
[2024-09-14] MEDS: DOCUSATE SODIUM 100 MG CAPSULE PO PRN (11:48)
[2024-09-14 22:00] VITALS: BP 136/84; PULSE 79; RESP 18; TEMP 97.8; O2SAT 95
[2024-09-15 09:00] VITALS: BP 120/60; TEMP 98.4
[2024-09-15 20:03] VITALS: BP 135/81; PULSE 79; RESP 19; TEMP 98.2; O2SAT 99
[2024-09-16 08:30] VITALS: BP 126/77; PULSE 82; RESP 18; TEMP 97.4; O2SAT 95
[2024-09-16] MEDS ORDERED: PALI234D IM (15:29)
[2024-09-16] MEDS ORDERED: TRAZ-252 PO (15:29)
[2024-09-16] MEDS ORDERED: OLAN10TA74 PO (15:29)
[2024-09-16] MEDS: LORazepam 2 MG TABLET PO PRN (17:14)
[2024-09-16 21:29] VITALS: BP 129/77; PULSE 75; RESP 18; TEMP 97.7; O2SAT 96
[2024-09-16] MEDS: HALOPERIDOL 5 MG TABLET PO PRN (21:49)
[2024-09-16] MEDS: ZOLPIDEM TARTRATE 10 MG TABLET PO PRN (22:15)
[2024-09-17 09:24] VITALS: BP 130/90; PULSE 80; RESP 17; TEMP 98; O2SAT 98
== END 2024-09-17 15:39 | disposition home or self-care (01) | DRG 750 ==
LOC: EMS 09:25 → 3EI 14:05 → EMS 14:38
PROVIDERS: ADMIT Psychiatry & Neurology Psychiatry; ATTEND Psychiatry & Neurology Psychiatry
PROC: GZHZZZZ Group Psychotherapy (ICD-10-PCS; principal; 2024-09-11)
PROC: GZ56ZZZ Individual Psychotherapy, Supportive (ICD-10-PCS; 2024-09-11)
DX: F25.1 Schizoaffective disorder, depressive type (principal); R45.851 Suicidal ideations; Z21 Asymptomatic human immunodeficiency virus [HIV] infection status; F41.9 Anxiety disorder, unspecified; G47.00 Insomnia, unspecified; F17.210 Nicotine dependence, cigarettes, uncomplicated; Z20.822 Contact with and (suspected) exposure to COVID-19; F15.90 Other stimulant use, unspecified, uncomplicated; Z79.899 Other long term (current) drug therapy; Z91.010 Allergy to peanuts; Z91.199 Patient's noncompliance with other medical treatment and regimen due to unspecified reason; Z91.52 Personal history of nonsuicidal self-harm; Z59.00 Homelessness unspecified
CPT/HCPCS: 80048; 80053; 80061; 83036; 84443; 85025; 99285; G0480